=== PATIENT | female | born 1990 | race American Indian/Alaskan Native ===

== ENCOUNTER → 2023-08-19 | Outpatient (CLI) | payer OTHER ==
[~2023-08-19] MED LIST: ALEVE 220MG220 MG PO; FLOMAX 0.40.4 MG/CAP PO; IBU600 MG PO; NATURAL IRON65 MG; PERCOCET 325 MG1 TA2 PO; PRENATAL TABLET PO; ROXICODONE 55 MG/TAB PO; TYLENOL 500MG500 MG PO
== END ==
LOC: COL.RAD 14:05
DX: N20.1 Calculus of ureter (principal)